=== PATIENT | female | born 1960 | race Caucasian/White ===

== ENCOUNTER → 2016-07-09 | Outpatient (CLI) | payer OTHER ==
[2013-11-23 14:22] VITALS: BP 113/65
[~2016-07-09] MED LIST: MULT-246 PO; SERT100T PO; ZOLP10TA PO
--- NOTE | 2016-07-09 14:36 | KCIC ---
PROCEDURE Lumbar spine MRI without contrast. HISTORY Lower back pain. Right lower extremity radiculopathy. TECHNIQUE Multiplanar and multi sequence magnetic resonance imaging of the lumbar spine was performed without contrast. COMPARISON None. FINDINGS There is minimal retrolisthesis of L2 on L3. There is slight straightening of lumbar lordosis. There is endplate remodeling with disc space narrowing and disc desiccation predominately at the lumbosacral junction. There are few endplate Schmorl's nodes. The conus terminates at L1-L2. There are few small vertebral body hemangiomas. At L1-L2, there is a minimal disc bulge and endplate remodeling. There is no stenosis. At L2-L3, there is a mild disc bulge and endplate remodeling. There may be superimposed shallow right extra foraminal to lateral disc protrusion. There is no stenosis. At L3-L4, there is no stenosis. At L4-L5, there is a disc bulge with right foraminal annular tear and endplate remodeling. There is mild facet arthropathy. There is no significant stenosis. At L5-S1, there is diffuse disc bulge and endplate osteophytosis. There is mild facet arthropathy. There is no significant stenosis. IMPRESSION 1. Multilevel degenerative change within the lumbar spine, described in detail above. 2. No acute finding. Electronically signed by: Mena Cottrell (Jul 09, 2016 14:34:34)
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
== END | disposition home or self-care (01) ==
LOC: KCIC MRI 12:45
DX: M25.561 Pain in right knee (principal); M54.5 Low back pain
CPT/HCPCS: 72148; 73721

== ENCOUNTER 2016-07-21 11:19 | Emergency (ER) | payer OTHER ==
[~2016-07-21] VITALS: Ht 152.4 cm; Wt 68.0 kg
[2016-07-21] MEDS ORDERED: MORPHINE SULFATE 4 MG/ML DISP.SYRIN. IV ONE (12:15)
[2016-07-21] MEDS ORDERED: ONDANSETRON PF 4 MG/2 ML VIAL. IV ONE (12:15)
[2016-07-21 12:27] LABS: CALCIUM 9.3 mg/dL (8.5-10.1); CREATININE 0.8 mg/dL (0.6-1.0); GFR 74.7; POTASSIUM 4.4 mmol/L (3.5-5.1)
[2016-07-21 12:29] LABS: BASO # 0.1 x10^3/uL (0.0-0.2); BASO % 1 % (0-3); EOS % 1 % (0-3); HEMATOCRIT 41.6 % (36.0-47.0); LYMPH # 1.3 x10^3/uL (1.0-4.8); LYMPH % 13 % (24-48); MEAN CORPUSCULAR HEMOGLOBIN 30 pg (25-35); MEAN CORPUSCULAR HGB CONC 34 g/dL (31-37); MEAN CORPUSCULAR VOLUME 90 fL (79-100); MONO % 3 % (0-9); NEUT % 83 % (31-73); PLATELET COUNT 179 x10^3/uL (140-400); RED BLOOD COUNT 4.63 x10^6/uL (3.50-5.40); RED CELL DISTRIBUTION WIDTH 12.8 % (11.5-14.5); WHITE BLOOD COUNT 9.9 x10^3/uL (4.0-11.0)
[2016-07-21 12:32] LABS: ALBUMIN 3.8 g/dL (3.4-5.0); TOTAL BILIRUBIN 0.3 mg/dL (0.2-1.0); TOTAL PROTEIN 7.6 g/dL (6.4-8.2)
[2016-07-21 12:35] LABS: BILIRUBIN,URINE NEGATIVE (NEG); GLUCOSE,URINE NEGATIVE (NEG); NITRITE,URINE NEGATIVE (NEG); PH,URINE 7.5; PROTEIN,URINE NEGATIVE (NEG-TRACE); UROBILINOGEN,URINE 0.2 mg/dL (0.2 mg/dL)
[2016-07-21 13:24] LABS: BACTERIA,URINE 0 /HPF (0-FEW); RBC,URINE 0 /HPF (0-2); SQUAMOUS EPITHELIAL CELL,UR OCC /LPF; WBC,URINE 0 /HPF (0-4)
[2016-07-21 14:00] VITALS: BP 119/78
[2016-07-21] MEDS ORDERED: OXYCODONE/APAP 5/325 TABLET. PO ONE (14:00)
[2016-07-21] MEDS ORDERED: OXYC-323 PO (14:03)
[2016-07-21] MEDS ORDERED: ONDA4TAB10 SL (14:03)
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
== END 2016-07-21 14:22 | disposition home or self-care (01) ==
LOC: ER 11:19
DX: R10.9 Unspecified abdominal pain (principal); G89.29 Other chronic pain; Z88.2 Allergy status to sulfonamides; Z88.5 Allergy status to narcotic agent; Z91.012 Allergy to eggs
CPT/HCPCS: 36415; 80053; 81001; 85027; 96374; 96375; 99284; J2270; J2405

== ENCOUNTER 2017-05-27 14:20 | Emergency (ER) | payer MEDICARE, OTHER ==
[2017-05-27] MEDS: ALBUTEROL SULFATE 2.5 MG/3 ML NEBU. NEB (15:14)
[2017-05-27 15:27] LABS: INFLUENZA A PATIENT POSITIVE (NEGATIVE); INFLUENZA B PATIENT NEGATIVE (NEGATIVE); OBC FLU VALID
== END 2017-05-27 15:17 | disposition home or self-care (01) ==
LOC: ER 14:20
DX: J09.X2 Influenza due to identified novel influenza A virus with other respiratory manifestations (principal); D86.9 Sarcoidosis, unspecified; F32.9 Major depressive disorder, single episode, unspecified; G89.29 Other chronic pain; Z88.2 Allergy status to sulfonamides; Z87.01 Personal history of pneumonia (recurrent); Z88.5 Allergy status to narcotic agent; Z91.012 Allergy to eggs
CPT/HCPCS: 71046; 87804; 87804-59; 94640; 99285-25; J7613

== ENCOUNTER 2017-06-02 10:56 | Emergency (ER) | payer MEDICARE ==
[2017-06-02] MEDS: IV NORMAL SALINE 1000ML BAG 1,000 ML IV ×2 (11:33)
[2017-06-02] MEDS: ONDANSETRON PF 4 MG/2 ML VIAL. IV ×2 (11:34)
[2017-06-02] MEDS: KETOROLAC 15 MG/ML VIAL. IV ×2 (11:35)
[2017-06-02 11:36] LABS: ANION GAP 4 (6-14); BLOOD UREA NITROGEN 10 mg/dL (7-20); BUN/CREATININE RATIO 11 (6-20); CALCIUM 9.2 mg/dL (8.5-10.1); CARBON DIOXIDE 30 mmol/L (21-32); CHLORIDE 101 mmol/L (98-107); CREATININE 0.9 mg/dL (0.6-1.0); GLUCOSE 104 mg/dL (70-99); POTASSIUM 3.5 mmol/L (3.5-5.1); SODIUM 135 mmol/L (136-145)
[2017-06-02] MEDS: ACETAMINOPHEN 325 MG TABLET. PO ×2 (11:36)
[2017-06-02 11:41] LABS: ALBUMIN 4.2 g/dL (3.4-5.0); ALBUMIN/GLOBULIN RATIO 1.1 (1.0-1.7); ALK PHOS 77 U/L (46-116); ALT (SGPT) 18 U/L (14-59); AST (SGOT) 20 U/L (15-37); TOTAL BILIRUBIN 0.4 mg/dL (0.2-1.0); TOTAL PROTEIN 8.2 g/dL (6.4-8.2)
== END 2017-06-02 14:12 | disposition home or self-care (01) ==
LOC: ER 10:56
DX: J11.1 Influenza due to unidentified influenza virus with other respiratory manifestations (principal); E86.0 Dehydration; G89.29 Other chronic pain; Z88.2 Allergy status to sulfonamides; Z88.5 Allergy status to narcotic agent; Z91.012 Allergy to eggs
CPT/HCPCS: 36415; 80053; 96361; 96374; 96375; 99284-25; J1885; J2405; J7030

== ENCOUNTER 2017-07-16 06:05 | Emergency (ER) | payer MEDICARE ==
[2017-07-16 06:56] LABS: ANION GAP 10 (6-14); BLOOD UREA NITROGEN 11 mg/dL (7-20); BUN/CREATININE RATIO 14 (6-20); CALCIUM 9.5 mg/dL (8.5-10.1); CARBON DIOXIDE 24 mmol/L (21-32); CHLORIDE 105 mmol/L (98-107); CREATININE 0.8 mg/dL (0.6-1.0); GFR 74.5; GLUCOSE 93 mg/dL (70-99); POTASSIUM 3.8 mmol/L (3.5-5.1); SODIUM 139 mmol/L (136-145)
[2017-07-16 07:03] LABS: ALBUMIN 3.7 g/dL (3.4-5.0); ALK PHOS 76 U/L (46-116); ALT (SGPT) 16 U/L (14-59); AST (SGOT) 15 U/L (15-37); TOTAL BILIRUBIN 0.2 mg/dL (0.2-1.0); TOTAL PROTEIN 7.3 g/dL (6.4-8.2)
[2017-07-16] MEDS: IV NORMAL SALINE 1000ML BAG 1,000 ML IV (07:06)
[2017-07-16 07:11] LABS: TROPONINI < 0.017 ng/mL (0.000-0.055)
[2017-07-16 07:16] LABS: ADD MAN DIFF? NO
[2017-07-16 07:21] LABS: BASO # 0.1 x10^3/uL (0.0-0.2); BASO % 1 % (0-3); EOS # 0.1 x10^3/uL (0.0-0.7); EOS % 2 % (0-3); HEMATOCRIT 35.7 % (36.0-47.0); HEMOGLOBIN 12.3 g/dL (12.0-15.5); LYMPH # 2.4 x10^3/uL (1.0-4.8); LYMPH % 39 % (24-48); MEAN CORPUSCULAR HEMOGLOBIN 32 pg (25-35); MEAN CORPUSCULAR HGB CONC 34 g/dL (31-37); MEAN CORPUSCULAR VOLUME 94 fL (79-100); MONO # 0.4 x10^3/uL (0.0-1.1); MONO % 7 % (0-9); NEUT # 3.1 x10^3uL (1.8-7.7); NEUT % 50 % (31-73); PLATELET COUNT 189 x10^3/uL (140-400); RED BLOOD COUNT 3.81 x10^6/uL (3.50-5.40); RED CELL DISTRIBUTION WIDTH 12.7 % (11.5-14.5); WHITE BLOOD COUNT 6.1 x10^3/uL (4.0-11.0)
[2017-07-16 07:28] LABS: NT-PRO BNP 140 pg/mL (0-124)
[2017-07-16 07:28] LABS: CKMB MASS 0.6 ng/mL (0.0-3.6); CREATINE KINASE 50 U/L (26-192)
== END 2017-07-16 08:58 | disposition home or self-care (01) ==
LOC: ER 06:05
DX: R06.02 Shortness of breath (principal); R07.89 Other chest pain; F32.9 Major depressive disorder, single episode, unspecified; D86.9 Sarcoidosis, unspecified; G89.29 Other chronic pain; Z88.2 Allergy status to sulfonamides; Z88.5 Allergy status to narcotic agent; Z91.012 Allergy to eggs
CPT/HCPCS: 36415; 71046; 80053; 82553; 83880; 84484; 85025; 93005; 96360; 99285-25; J7030

== ENCOUNTER → 2017-07-21 | Outpatient (CLI) | payer MEDICARE | END | disposition home or self-care (01) | LOC: KCIC CT 09:22 | DX: M47.892 Other spondylosis, cervical region (principal); R13.10 Dysphagia, unspecified; R05 Cough | CPT/HCPCS: 70490; 74220 ==

== ENCOUNTER → 2017-08-19 | Day surgery (SDC) | payer MEDICARE ==
[~2017-08-19] MED LIST changes: +LIDOCAINE 1% PF 2 ML VIAL. ID; +MIDAZOLAM HCL/PF 5 MG/5 ML VIAL.; +MORPHINE SULFATE 4 MG/ML DISP.SYRIN. IV; -MULT-246 PO; +ONDANSETRON PF 4 MG/2 ML VIAL. IV; +PROCHLORPERAZINE 10 MG/2 ML VIAL. IV; -SERT100T PO; -ZOLP10TA PO; +fentaNYL PF VIAL 100 MCG/2 ML VIAL; +fentaNYL PF VIAL 100 MCG/2 ML VIAL IV
[2017-08-19] MEDS: IV RINGERS,LACTATED 1000ML 1,000 ML IV (12:39)
[2017-08-19] MEDS: ALBUTEROL SULFATE 2.5 MG/3 ML NEBU. NEB (12:40)
[2017-08-19] MEDS: MIDAZOLAM HCL/PF 5 MG/5 ML VIAL. IV (12:52)
== END ==
LOC: SURG 11:41
DX: D86.9 Sarcoidosis, unspecified (principal); J34.3 Hypertrophy of nasal turbinates
CPT/HCPCS: 31622; 94640; G0500; J2250; J3010; J7613

== ENCOUNTER 2018-09-11 19:09 | Emergency (ER) | payer MEDICARE ==
[~2018-09-11] VITALS: Ht 152.4 cm; Wt 68.0 kg
[~2018-09-11 19:09] MED LIST changes: +ACET325T9 PO; +ALBU2.5V8 INH; +BENZ100C PO; +CLON0.5T11 PO; +IBUP-1007 PO; -LIDOCAINE 1% PF 2 ML VIAL. ID; -MIDAZOLAM HCL/PF 5 MG/5 ML VIAL.; -MORPHINE SULFATE 4 MG/ML DISP.SYRIN. IV; +MULT-246 PO; +ONDA4TAB10 SL; -ONDANSETRON PF 4 MG/2 ML VIAL. IV; +OSEL75CA PO; +OXYC1TAB15 PO; -PROCHLORPERAZINE 10 MG/2 ML VIAL. IV; +SERT100T PO; +ZOLP10TA PO; -fentaNYL PF VIAL 100 MCG/2 ML VIAL; -fentaNYL PF VIAL 100 MCG/2 ML VIAL IV
[2018-09-11] MEDS ORDERED: ONDANSETRON ODT 4 MG TAB.RAPDIS. PO ONE (19:45)
[2018-09-11] MEDS ORDERED: MORPHINE SULFATE 10 MG/ML VIAL. IM ONE (19:45)
[2018-09-11] MEDS ORDERED: methylPREDNISolone SOD SUCC PF 125 MG/2 ML VIAL. IM ONE (19:45)
[2018-09-11] MEDS ORDERED: HYDR-3164 PO (20:17)
[2018-09-11] MEDS ORDERED: ONDA4TAB12 PO (20:17)
--- NOTE | 2018-09-11 20:17 | PHYS DOC ---
Past Medical History Past Medical History: Cancer, Depression, Other Additional Past Medical Histor: breast cancer, lymphedema right arm,SARCOIDOSIS,CHRONIC PAIN Past Surgical History: , Tonsillectomy, Other Additional Past Surgical Histo: lumpectomy to right breast with right axillary lymph node resection Alcohol Use: Rarely Drug Use: None Adult General Chief Complaint Chief Complaint: BACK PAIN - NO INJURY HPI HPI Patient is a 58 year old female with history of anxiety, chronic mid and low back pain who presents to the ED today complaining of exacerbation of chronic back pain since this morning. Patient rates the pain at 9 out of 10. Describes the pain as sharp worse on movement. She states she went to see the PCP today and was given Toradol injection and Flexeril. She states none of it helped. She states she was having dinner with some friends, she states one of the friends was very loud, she states she could not take it anymore. She states her back got worse, she states she came to the ED to see if we can give her anything else for her pain. Patient denies any known injury. Denies any pain radiating to bilateral lower extremities. Denies any loss of bowel bladder function. Denies any numbness or tenderness to bilateral lower extremities. Denies any UTI symptoms. She states her current pain is consistent with her chronic back pain Review of Systems Review of Systems Constitutional: Denies fever or chills [] Eyes: Denies change in visual acuity, redness, or eye pain [] HENT: Denies nasal congestion or sore throat [] Respiratory: Denies cough or shortness of breath [] Cardiovascular: No additional information not addressed in HPI [] GI: Denies abdominal pain, nausea, vomiting, bloody stools or diarrhea [] : Denies dysuria or hematuria [] Musculoskeletal: Reports mid and low back pain Integument: Denies rash or skin lesions [] Neurologic: Denies headache, focal weakness or sensory changes [] All other systems were reviewed and found to be within normal limits, except as documented in this note. Current Medications Current Medications Current Medications Medications (Trade) Dose Ordered Sig/Cole Start Time Stop Time Status Last Admin Dose Admin Methylprednisolone Sodium Succinate (SOLU-Medrol 125MG VIAL) 125 mg 1X ONCE 09/11/18 19:45 09/11/18 19:48 DC 09/11/18 19:56 125 MG Morphine Sulfate (Morphine Sulfate) 5 mg 1X ONCE 09/11/18 19:45 09/11/18 19:48 DC 09/11/18 19:57 5 MG Ondansetron HCl (Zofran Odt) 4 mg 1X ONCE 09/11/18 19:45 09/11/18 19:48 DC 09/11/18 19:56 4 MG Allergies Allergies Allergies Coded Allergies Type Severity Reaction Last Updated Verified Sulfa (Sulfonamide Antibiotics) Allergy Intermediate "Makes me real sick" 08/19/17 Yes codeine Allergy Intermediate "Makes me real sick" 08/19/17 Yes egg Allergy Intermediate "Makes me real sick" 08/19/17 Yes Physical Exam Physical Exam Constitutional: Well developed, well nourished, no acute distress, non-toxic appearance. [] HENT: Normocephalic, atraumatic, bilateral external ears normal, oropharynx moist, no oral exudates, nose normal. [] Eyes: PERRLA, EOMI, conjunctiva normal, no discharge. [] Neck: Normal range of motion, no tenderness, supple, no stridor. [] Cardiovascular:Heart rate regular rhythm, no murmur [] Lungs & Thorax: Bilateral breath sounds clear to auscultation [] Abdomen: Bowel sounds normal, soft, no tenderness, no masses, no pulsatile masses. [] Skin: Warm, dry, no erythema, no rash. [] Back: [id number] pain patches noted on the mid back, diffuse paraspinal muscle tenderness to bilateral thoracic and lumbar spine worse on the right side, no midline thoracic and lumbar spine tenderness, no CVA tenderness. [] Extremities: No tenderness, no cyanosis, no clubbing, ROM intact, no edema. [] Neurologic: Alert and oriented X 3, normal motor function, normal sensory function, no focal deficits noted. [] Psychologic: Affect normal, judgement normal, mood normal. [] Current Patient Data Vital Signs Vital Signs Date Time Temp Pulse Resp B/P (MAP) Pulse Ox O2 Delivery O2 Flow Rate FiO2 09/11/18 19:10 98.2 89 16 131/68 (89) 97 Room Air 98.2 EKG EKG [] Radiology/Procedures Radiology/Procedures [] Course & Med Decision Making Course & Med Decision Making Pertinent Labs and Imaging studies reviewed. (See chart for details) This is a 58-year-old female patient presenting to the ED today with exacerbation of chronic low back pain as well as mid back pain. See history of present illness. Was given pain relief in the ED and discharged to home. Follow- up with her PCP next week. Rigobertoon Disclaimer Dragon Disclaimer This electronic medical record was generated, in whole or in part, using a voice recognition dictation system. Departure Departure Impression: Primary Impression: Chronic mid back pain Additional Impression: Chronic low back pain Disposition: HOME, SELF-CARE Condition: STABLE Referrals: ESTHER RAMIREZ MD (PCP) Follow-up next week Patient Instructions: Back Pain, Adult Additional Instructions: You were evaluated in the emergency room for chronic back pain. We put you on hydrocodone, take it as needed for pain. We also gave you Zofran, you can take it with a hydrocodone to prevent vomiting/nausea. Please follow-up with your doctor in the next 1-2 weeks. Come back to the ED at any point symptoms worsen. Scripts Ondansetron (ONDANSETRON ODT) 4 Mg Tab.rapdis 1 TAB PO PRN Q6-8HRS, #16 TAB Prov: CLARIBEL MERA APRN 09/11/18 Hydrocodone/Apap 5-325 (NORCO 5-325 TABLET) 1 Each Tablet 1-2 TAB PO Q6HRS, #10 TAB Prov: CLARIBEL MERA APRN 09/11/18 Problem Qualifiers Primary Impression: Chronic mid back pain Back pain laterality: right Qualified Codes: M54.6 - Pain in thoracic spine; G89.29 - Other chronic pain Additional Impression: Chronic low back pain Back pain laterality: right Sciatica presence: without sciatica Qualified Codes: M54.5 - Low back pain; G89.29 - Other chronic pain CLARIBEL MERA APRN September 11, 2018 20:17
[2018-09-11 20:23] VITALS: BP 133/78
== END 2018-09-11 20:23 | disposition home or self-care (01) ==
LOC: ER 19:09
DX: G89.29 Other chronic pain (principal); M54.5 Low back pain; M54.6 Pain in thoracic spine; Z88.2 Allergy status to sulfonamides; Z88.5 Allergy status to narcotic agent; Z91.012 Allergy to eggs
CPT/HCPCS: 96372; 99284; J2270; J2930; Q0162

== ENCOUNTER → 2021-03-13 | Outpatient (CLI) | payer MEDICARE ==
[~2021-03-13] MED LIST changes: +CAPS1ADH8 TP; +CELE100C PO; +CLON-77 PO; -CLON0.5T11 PO; +CLONAZEPAM1 MG PO; +FLUO20CA16 PO; +HYDR-3164 PO; +OMEP40CA7 PO; +ONDA4TAB12 PO; +SUMA100T4 PO; +TYLENOL; +ZOLP5TAB PO
--- NOTE | 2021-03-13 15:40 | KCIC ---
EXAMINATION: Magnetic resonance imaging (MRI) of the cervical spine without contrast 03/13/2021 12:40 PM HISTORY: Cervical radiculopathy TECHNIQUE: Multiplanar multi-weighted MRI of the cervical spine was performed without intravenous con trast using the standard cervical spine protocol. Contrast information: None administered COMPARISON: None available. FINDINGS: There is 2 mm anterolisthesis of C7 on T1. Vertebral bodies demonstrate normal signal intensity on al l sequences. No acute fracture is identified; however, if trauma is suspected, a CT scan would be a more sensitive examination for fractures. The craniocervical junction is normal. The visualized por tions of the skull base and the posterior fossa are normal. The spinal cord demonstrates normal sign al intensity on all sequences. Disc desiccation is identified at all levels of the cervical spine is mild disc height loss at C5-C6. No soft tissue abnormality is identified. Normal signal voids are p resent in the vertebral arteries. C2-C3: The disk is normal in configuration. There is no facet arthropathy. There is no uncovertebral joint disease. There is no neuroforaminal stenosis. There is no spinal canal stenosis. C3-C4: There is a posterior disc osteophyte complex with left foraminal disc extrusion. Mild facet ar thropathy. Severe left neuroforaminal stenosis. Mild spinal canal stenosis without deformity of the c ord or cord signal alteration. C4-C5: There is a posterior disc osteophyte complex asymmetric to the left. Mild facet arthropathy. M oderate left and moderate uncovertebral joint disease. Severe left and moderate right neural foramina l stenosis. Mild spinal canal stenosis. C5-C6: There is a posterior disc osteophyte complex. Mild facet arthropathy. There is a right foramin al disc extrusion. Severe right neuroforaminal stenosis. Mild spinal canal stenosis without deformity or cord or cord signal alteration. C6-C7: There is a disc bulge asymmetric to the left with left foraminal disc protrusion. Mild facet a rthropathy. Moderate uncovertebral joint disease. Moderate bilateral neural foraminal stenosis. Mild spinal canal stenosis. C7-T1: Disc is normal in configuration. No neuroforaminal or spinal canal stenosis. IMPRESSION: Mild degenerative changes of the cervical spine as described in detail above. Electronically signed by: Pham Oakes MD (03/13/2021 3:38 PM) [facility]
== END ==
LOC: KCIC MRI 12:26
PROVIDERS: ATTEND Neurological Surgery
DX: M47.22 Other spondylosis with radiculopathy, cervical region (principal); M48.02 Spinal stenosis, cervical region; M43.13 Spondylolisthesis, cervicothoracic region; M50.123 Cervical disc disorder at C6-C7 level with radiculopathy; M48.8X2 Other specified spondylopathies, cervical region; M51.34 Other intervertebral disc degeneration, thoracic region; M25.78 Osteophyte, vertebrae
CPT/HCPCS: 72141

== ENCOUNTER → 2021-03-23 | Outpatient (CLI) | payer MEDICARE ==
[~2021-03-23] MED LIST changes: +IOHEXOL 180 MG/ML 10 ML VIAL. ONE; +methylPREDNISolone ACETATE 40 MG/ML VIAL. ONE; +methylPREDNISolone ACETATE 80 MG/ML VIAL. ONE
--- NOTE | 2021-03-23 09:48 | PDOC1 ---
INITIAL PAIN CONSULT DATE OF SERVICE: DOS: DATE: 03/23/21 TIME: 09:42 CHIEF COMPLAINT: Chief Complaint: Neck and right upper extremity pain HISTORY OF PRESENT ILLNESS: 60-year-old female presents with history of pain base of neck right upper extremity and shoulder blade for about 4 months not resolve any specific injury or accident that she is aware of is had several falls over the past few months for various reasons has had significant pain base the neck and right upper extremity radiating to the arm and hand patient reports it is constant sharp stabbing throbbing shooting tingling with numbness in the right hand and arm aching in the neck worse with activity standing walking repetitive motions reaching driving any weightbearing with forward reaching especially difficult sleeping patient reports wait several weeks once an hour from sleep side effect her ability to walk but does affect her ability to repetitive motions with the right arm patient reports has had physical therapy also counseling also chiropractic treatment all of which were helpful but only very temporarily patient is taking Tylenol and taking salon pause patches and arthritis creams which help but only temporarily patient rates her disability rating 0-10 10 being worst is a 10 in all categories family was mostly 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 Patient have an MRI scan of the cervical spine showing at C3-4 C4-5 and C5-6 and C6-7 asymmetric disc bulge with osteophyte complexes at C4-5 moderate left and moderate uncovertebral joint disease severe left and moderate right neuroforaminal stenosis C4-5 with mild spinal canal stenosis at C5-6 and C6-7 showing mild bilateral neuroforaminal stenosis as well. Patient reports no loss of motor function with significant fatigability right upper extremity compared to the left. PAST MEDICAL HISTORY: PMH: Arthritis, shortness of breath, chemotherapy status post radiation and chemotherapy treatment, lymphedema right arm PREVIOUS SURGERIES: Past Surgical Hx: Right breast lumpectomy, right lung wedge resection, , tonsillectomy, breast reduction CURRENT MEDICATIONS: Current Meds: Active Scripts Medications Dose Route/Sig Max Daily Dose Days Date Category Clonazepam 1 Mg Tablet 1 Mg PO BID 03/23/21 Reported Salonpas Gel-Patch Hot (Capsaicin/Menthol) 1 Each Adh..patch 1 Patch TP DAILY 30 03/23/21 Reported [tylenol 8 hour ] 650 Mg BID 03/23/21 Reported Sumatriptan Succinate 100 Mg Tablet 1 Tab PO UD 03/23/21 Reported Omeprazole 40 Mg Capsule. 1 Cap PO DAILY 03/23/21 Reported Celebrex (Celecoxib) 100 Mg Capsule 1 Cap PO BID 03/23/21 Reported Ambien (Zolpidem Tartrate) 5 Mg Tablet 5 Mg PO PRN QHS PRN 03/23/21 Reported Prozac (Fluoxetine Hcl) 20 Mg Capsule 1 Cap PO DAILYWBKFT 03/23/21 Reported Tylenol (Acetaminophen) 325 Mg Tablet 1 Tab PO PRN Q4HRS 08/19/17 Reported ALLERGIES; Allergies: Coded Allergies: Sulfa (Sulfonamide Antibiotics) (Verified Allergy, Intermediate, "Makes me real sick", 08/19/17) codeine (Verified Allergy, Intermediate, "Makes me real sick", 08/19/17) egg (Verified Allergy, Intermediate, "Makes me real sick", 08/19/17) prednisone (Verified Adverse Reaction, Intermediate, 03/23/21) FAMILY HISTORY: Family Hx: Heart disease, lung cancer, dementia, prostate cancer, macular degeneration, strokes, sarcoidosis SOCIAL HISTORY: Social Hx: Patient is nondrug alcohol does not smoke says any illegal illicit or recreational drugs single lives in [facility] REVIEW OF SYSTEMS: ROS: Positive for those items mentioned in history of present illness, all systems are reviewed, otherwise negative ,and are complete full and well-documented on patient's chart. PHYSICAL EXAM: VS: Blood pressure is 123/79 pulse 90 respirations 16 temperature 98.2 F height is 5 foot weight is 158 pounds PE: PHYSICAL EXAMINATION: GENERAL: The patient is awake, alert, oriented, appropriate, very pleasant in demeanor HEENT: Shows normocephalic, atraumatic. Extraocular movements are intact and symmetrical. Oral cavity: Mucous membranes moist and pink. Dentition is intact. NECK: Shows anterior throat supple without palpable lymphadenopathy noted. Swallow reflex symmetrical. CHEST: Shows normal on inspection. Breath sounds are clear bilaterally, distant no rales or rhonchi. HEART: Shows S1, S2 clear. No murmurs auscultated. ABDOMEN: Soft, nontender, nondistended, obese. No palpable organomegaly is noted. No rebound or guarding demonstrated. BACK: Shows spine grossly in the midline. Normal-appearing cervical lordotic curvature. Cervical paraspinous muscles show symmetrical inspection, palpation some moderate tenderness diffusely throughout the upper middle lower decrease the paraspinous muscles bilaterally somewhat more on the right than the left but present bilateral without trigger points without radiation. Patient shows good rotation of motion cervical spine both laterally as well as full extension full forward flexion without significant difficulty. There is slightly increased thoracic kyphosis, some minor flattening of the lumbar lordotic curvature. EXTREMITIES: Upper extremities show deep tendon reflexes 2+ in the biceps and tricep tendons. 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 Peripheral pulses are 2+ radial. No peripheral edema is noted bilaterally. Upper extremities are warm and dry to touch, equal in color and appearance. SKIN: Shows warm and dry, good turgor. No edema. No sores, rashes or bruising throughout. IMPRESSION: Impression: 60-year-old female with proximate 4-month history increasing pain base of neck right upper extremity in a radicular fashion. MRI scan cervical spine as noted Arthritis Shortness of breath Status post breast cancer Plan: Options discussed with patient occluding cancer medical managements phys ical therapies interventional techniques. Patient elects interventional techniques. We discussed the cervical epidural steroid injections description as well as anatomical models described procedure. Risks were discussed including but not limited to: Bleeding, infection, possibility of epidural hematoma and subsequent neurological compromise, dural puncture, headaches, spinal cord and/or nerve damage, side effects of steroid medication, and poor results regarding pain control. Patient understands and wished to proceed. Patient return to the clinic in approximate 2 weeks for follow-up, was counseled as return appointment, activity level, and side effect to be aware of. Procedure cervical epidural steroid injection at the C6-7 level, using local anesthetic under sterile prep and drape using C-arm fluoroscopic guidance under local anesthesia medications injected ;120 mg Depo-Medrol +5 mL normal saline and 2 mL contrast; condition at discharge is stable patient tolerated procedure well. and had no complications MATT PORTER MD Mar 23, 2021 09:48
--- NOTE | 2021-03-23 09:49 | PDOC4 ---
Procedure Note: ICD 10 Code: ICD 10 Code: M54.12 M50.36 M4 8.02 Procedure Note: Patient was consented for cervical epidural steroid injection with fluoroscopic guidance. Risks were discussed including but not limited to: Bleeding, infection, possibility of epidural hematoma and subsequent neurological compromise, dural puncture, headaches, spinal cord and/or nerve damage, side effects of steroid medication, and poor results regarding pain control. Patient understands and wished to proceed. Procedure cervical epidural steroid injection at the C6-7 level, using local anesthetic under sterile prep and drape using C-arm fluoroscopic guidance under local anesthesia medications injected ;120 mg Depo-Medrol +5 mL normal saline and 2 mL contrast; condition at discharge is stable patient tolerated procedure well. and had no complications MATT PORTER MD Mar 23, 2021 09:49
== END | disposition home or self-care (01) ==
LOC: PNCL 07:39
PROVIDERS: ATTEND Anesthesiology
DX: M54.12 Radiculopathy, cervical region (principal); G89.29 Other chronic pain; M19.90 Unspecified osteoarthritis, unspecified site; Z98.890 Other specified postprocedural states; Z79.899 Other long term (current) drug therapy; Z85.3 Personal history of malignant neoplasm of breast; Z88.8 Allergy status to other drugs, medicaments and biological substances; Z88.2 Allergy status to sulfonamides
CPT/HCPCS: 62321; J1030; J1040; Q9965

== ENCOUNTER → 2021-04-06 | Outpatient (CLI) | payer MEDICARE ==
--- NOTE | 2021-04-06 08:42 | PDOC ---
Progress Note - Pain Clinic Date of Service: DOS: DATE: 04/06/21 TIME: 08:39 Diagnosis: Dx: Cervical radiculopathy with cervical degenerative disease and cervical spinal stenosis History or Present Illness: HPI: 60-year-old female returns for follow-up status post cervical epidural steroid action x1. Patient reports 25% percent improvement in the pain in the base the neck and right upper extremity patient reports still significant however in the scapular region as well rated as a 10 on scale 10 is worst average and least is a 10 today patient scribes as aching sharp shooting in the right arm and upper extremity as well as the right scapula stabbing radiating can be constant severe with repetitive motions reaching overhead with the right hand and weightbearing with lifting and reaching forward patient reports it wakes her from sleep about every 3-4 hours patient reports no motor deficits but significant fatigability of the right upper extremity. Physical Exam: VS: Blood pressure is one 2/88 pulse 94 respirations 16 temperature is 98.4 F height 5 foot weight is 161 pounds PE: PHYSICAL EXAMINATION: GENERAL: The patient is awake, alert, oriented, appropriate, very pleasant in demeanor HEENT: Shows normocephalic, atraumatic. Extraocular movements are intact and symmetrical. Oral cavity: Mucous membranes moist and pink. Dentition is intact. NECK: Shows anterior throat supple without palpable lymphadenopathy noted. Swallow reflex symmetrical. CHEST: Shows normal on inspection. Breath sounds are clear bilaterally. HEART: Shows S1, S2 clear. No murmurs auscultated. ABDOMEN: Soft, nontender, nondistended. No palpable organomegaly is noted. BACK: Shows spine grossly in the midline. Normal-appearing cervical lordotic curvature. Cervical paraspinous muscles show symmetrical inspection, palpation some moderate tenderness diffusely bilaterally only diffusely without significant radiation patient shows full rotation motion cervical spine both laterally as well as full extension full forward flexion without significant difficulty. There is slightly increased thoracic kyphosis, some minor flattening of the lumbar lordotic curvature. EXTREMITIES: Upper extremities show deep tendon reflexes 2+ in the biceps and triceps tendons. 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 Peripheral pulses are 2+ radial. No peripheral edema is noted bilaterally. Upper extremities are warm and dry to touch, equal in color and appearance. SKIN: Shows warm and dry, good turgor. No edema. No sores, rashes or bruising throughout. Procedure: Procedure: Options were discussed with the patient. Patient's old chart was reviewed as her current medication regimen updated current review of systems updated today as well. We'll proceed with a cervical epidural steroid injection today with fluoroscopic guidance. Risks were discussed including but not limited to: Bleeding, infection, possibility of epidural hematoma and subsequent neurological compromise, dural puncture, headaches, spinal cord and/or nerve damage, side effects of steroid medication, and poor results regarding pain control. Patient understands and wished to proceed. Patient will return to the clinic in approximate 2 weeks for follow-up, was counseled as return appointment, activity level, and side effect to be aware of. Medication Injected: Med Injected: Procedure cervical epidural steroid injection at the C6-7 level, using local a nesthetic under sterile prep and drape using C-arm fluoroscopic guidance under local anesthesia medications injected ;120 mg Depo-Medrol +5 mL normal saline and 2 mL contrast; condition at discharge is stable patient tolerated procedure well. and had no complications Condition at Discharge: Condition at Discharge: Condition at discharge stable, patient tolerated procedure well and had no complications. MATT PORTER MD Apr 06, 2021 08:42
--- NOTE | 2021-04-06 08:42 | PDOC4 ---
Procedure Note: ICD 10 Code: ICD 10 Code: M54.12 M50.30 M4 8.02 Procedure Note: Patient was consented for cervical epidural steroid injection with fluoroscopic guidance. Risks were discussed including but not limited to: Bleeding, infection, possibility of epidural hematoma and subsequent neurological compromise, dural puncture, headaches, spinal cord and/or nerve damage, side effects of steroid medication, and poor results regarding pain control. Patient understands and wished to proceed. Procedure cervical epidural steroid injection at the C6-7 level, using local a nesthetic under sterile prep and drape using C-arm fluoroscopic guidance under local anesthesia medications injected ;120 mg Depo-Medrol +5 mL normal saline and 2 mL contrast; condition at discharge is stable patient tolerated procedure well. and had no complications MATT PORTER MD Apr 06, 2021 08:42
== END | disposition home or self-care (01) ==
LOC: PNCL 07:57
PROVIDERS: ATTEND Anesthesiology
DX: M50.10 Cervical disc disorder with radiculopathy, unspecified cervical region (principal); M48.02 Spinal stenosis, cervical region; F41.9 Anxiety disorder, unspecified; F32.9 Major depressive disorder, single episode, unspecified; Z85.3 Personal history of malignant neoplasm of breast; Z79.899 Other long term (current) drug therapy; Z98.890 Other specified postprocedural states; Z72.89 Other problems related to lifestyle; Z88.2 Allergy status to sulfonamides; Z88.5 Allergy status to narcotic agent; Z88.8 Allergy status to other drugs, medicaments and biological substances
CPT/HCPCS: 62321; J1030; J1040; Q9965

== ENCOUNTER → 2021-05-08 | Outpatient (CLI) | payer MEDICARE ==
--- NOTE | 2021-05-08 11:19 | PDOC ---
Progress Note - Pain Clinic Date of Service: DOS: DATE: 05/08/21 TIME: 11:14 Diagnosis: Dx: Cervical radiculopathy with cervical degenerative disease and cervical spinal stenosis Lumbar radiculopathy with lumbar degenerative disc disease Hypertension History or Present Illness: HPI: 60-year-old female returns for follow-up status post cervical epidural steroid injection last seen April 06, 2021 patient did very well after injection about 30% improvement in the neck and right upper extremity pain patient reports is doing better but still have significant pain in the right shoulder and upper extremity rated 8 on scale 10 is worst 6 on average 6 at its least and is a 6 today patient ports aching sharp shooting stabbing can be radiating constant also has new pain complaint of low back pain and "sciatic" pain in the lower extremities bilaterally. Patient reports is more on the right than the left and present into the posterior gluteus and thigh and lateral thigh as well patient reports is worse with walking and standing changing positions. Patient reports headaches which have been significant after the last injection they were quite a bit improved but then patient was hospitalized after her second injection for several days to control the migraines. We discussed patient's blood pressure today with a diastolic checked twice over 100, and discussed how pain can cause increased blood pressure, and patient to follow-up with her primary care physician regarding the hypertension as she is not currently taking any antihypertensives. Physical Exam: VS: Blood pressure is 135/102 pulse 88 respirations 18 temperature 97.7 F height is 5 foot weight is 161 pounds. PE: PHYSICAL EXAMINATION: GENERAL: The patient is awake, alert, oriented, appropriate, very pleasant demeanor HEENT: Shows normocephalic, atraumatic. Extraocular movements are intact and symmetrical. Oral cavity: Mucous membranes moist and pink. Dentition is intact. NECK: Shows anterior throat supple without palpable lymphadenopathy noted. Swallow reflex symmetrical. CHEST: Shows normal on inspection. Breath sounds are clear bilaterally, no rales or rhonchi. HEART: Shows S1, S2 clear. No murmurs auscultated. ABDOMEN: Soft, nontender, nondistended. No palpable organomegaly is noted. BACK: Shows spine grossly in the midline. Normal-appearing cervical lordotic curvature. Cervical paraspinous muscles show symmetrical inspection, palpation shows moderate tenderness diffusely, in the middle and lower distribution the paraspinous musculature, no radiation no atrophy or hypertrophy no trigger points identified. Patient does show good rotation motion cervical spine both laterally as well as full extension full forward flexion without significant difficulty or pain reported. There is increased thoracic kyphosis, some mild flattening of the lumbar lordotic curvature. Lumbar paraspinous muscles show symmetrical on inspection, on palpation shows some moderate tenderness diffusely throughout the upper, middle and lower distribution of the paraspinous muscles, but without specific trigger points, without radiation of pain. The patient has good rotational motion of the lumbar spine, both laterally as well as extension and flexion without significant difficulty. No tenderness over the spinous processes, sacrum or sacroiliac regions. 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 Lower extremities show deep tendon reflexes 2+ in the patellar and tendo calcaneus tendons. Motor exam is 5 on a scale of 5 with right dorsiflexion, extension, quadriceps and hamstring flexion and 5/5 on the left. Lower extremities are warm and dry to touch, equal in color and appearance. SKIN: Shows warm and dry, good turgor. No edema. No sores, rashes or bruising throughout. Procedure: Procedure: Options discussed with the patient. Patient chart was reviewed as her current medication regimen updated current review of systems updated today as well. We will proceed with a cervical epidural steroid injection today with fluoroscopic guidance. Risks were discussed including but not limited to: Bleeding, infection, possibility of epidural hematoma and subsequent neurological compromise, dural puncture, headaches, spinal cord and/or nerve damage, side effects of steroid medication, and poor results regarding pain control. Patient understands and wished to proceed. Patient will return to clinic in approximate 2 weeks for follow-up, was counseled as to return appointment, activity level, and side effect to be aware of. Medication Injected: Med Injected: Procedure cervical epidural steroid injection at the C6-7 level, using local anesthetic under sterile prep and drape using C-arm fluoroscopic guidance under local anesthesia medications injected ;120 mg Depo-Medrol +5 mL normal saline and 2 mL contrast; condition at discharge is stable patient tolerated procedure well. and had no complications Condition at Discharge: Condition at Discharge: Condition at discharge stable, patient Ross the procedure well and had no complications. MATT PORTER MD May 08, 2021 11:19
--- NOTE | 2021-05-08 11:20 | PDOC4 ---
Procedure Note: ICD 10 Code: ICD 10 Code: M54.12 M50.30 M4 8.02 Procedure Note: Patient was consented for cervical epidural steroid injection with fluoroscopic guidance. Risks were discussed including but not limited to: Bleeding, infection, possibility of epidural hematoma and subsequent neurological compromise, dural puncture, headaches, spinal cord and/or nerve damage, side effects of steroid medication, and poor results regarding pain control. Patient understands and wished to proceed. Procedure cervical epidural steroid injection at the C6-7 level, using local anesthetic under sterile prep and drape using C-arm fluoroscopic guidance under local anesthesia medications injected ;120 mg Depo-Medrol +5 mL normal saline and 2 mL contrast; condition at discharge is stable patient tolerated procedure well. and had no complications MATT PORTER MD May 08, 2021 11:20
== END | disposition home or self-care (01) ==
LOC: PNCL 10:30
PROVIDERS: ATTEND Anesthesiology
DX: M50.10 Cervical disc disorder with radiculopathy, unspecified cervical region (principal); M48.02 Spinal stenosis, cervical region; M51.16 Intervertebral disc disorders with radiculopathy, lumbar region; I10 Essential (primary) hypertension; F41.9 Anxiety disorder, unspecified; F32.9 Major depressive disorder, single episode, unspecified; Z85.3 Personal history of malignant neoplasm of breast; Z72.89 Other problems related to lifestyle; Z79.899 Other long term (current) drug therapy; Z98.890 Other specified postprocedural states; Z88.2 Allergy status to sulfonamides; Z88.5 Allergy status to narcotic agent; Z88.8 Allergy status to other drugs, medicaments and biological substances
CPT/HCPCS: 62321; J1030; J1040; Q9965

== ENCOUNTER 2021-09-12 13:12 | Emergency (ER) | payer MEDICARE ==
[~2021-09-12] VITALS: Ht 152.4 cm; Wt 72.8 kg
[~2021-09-12 13:12] MED LIST changes: -IOHEXOL 180 MG/ML 10 ML VIAL. ONE; -methylPREDNISolone ACETATE 40 MG/ML VIAL. ONE; -methylPREDNISolone ACETATE 80 MG/ML VIAL. ONE
[2021-09-12 13:39] LABS: BASO # 0.1 x10^3/uL (0.0-0.2); BASO % 1 % (0-3); EOS # 0.2 x10^3/uL (0.0-0.7); EOS % 2 % (0-3); HEMATOCRIT 40.7 % (36.0-47.0); HEMOGLOBIN 13.9 g/dL (12.0-15.5); LYMPH # 2.4 x10^3/uL (1.0-4.8); LYMPH % 26 % (24-48); MEAN CORPUSCULAR HEMOGLOBIN 31 pg (25-35); MEAN CORPUSCULAR HGB CONC 34 g/dL (31-37); MEAN CORPUSCULAR VOLUME 92 fL (79-100); MONO # 0.5 x10^3/uL (0.0-1.1); MONO % 5 % (0-9); NEUT % 66 % (31-73); PLATELET COUNT 240 x10^3/uL (140-400); RED BLOOD COUNT 4.43 x10^6/uL (3.50-5.40); RED CELL DISTRIBUTION WIDTH 12.1 % (11.5-14.5)
[2021-09-12] MEDS ORDERED: ASPIRIN 325 MG TABLET PO ONE (13:45)
[2021-09-12 13:49] LABS: CALCIUM 9.2 mg/dL (8.5-10.1); CREATININE 0.8 mg/dL (0.6-1.0); GFR 73.4; POTASSIUM 4.4 mmol/L (3.5-5.1)
[2021-09-12 13:53] LABS: ALBUMIN 3.8 g/dL (3.4-5.0); MAGNESIUM 2.3 mg/dL (1.8-2.4); TOTAL BILIRUBIN 0.4 mg/dL (0.2-1.0); TOTAL PROTEIN 7.7 g/dL (6.4-8.2)
[2021-09-12] MEDS ORDERED: ASPIRIN CHEWABLE 81 MG TABLET. PO ONE (14:00)
[2021-09-12 14:46] LABS: BACTERIA,URINE 0 /HPF (0-FEW); RBC,URINE 0 /HPF (0-2); WBC,URINE OCC /HPF (0-4)
--- NOTE | 2021-09-12 14:47 | RAD ---
EXAM: Chest, single view. HISTORY: Chest pain. COMPARISON: 07/16/2017. FINDINGS: A frontal view of the chest obtained. There is a small opacity along the right lateral mid thorax due to infiltrate, scarring or a pulmonary nodule. There are surgical anastomoses overlying th e right lung. There is no pleural effusion or pneumothorax. The heart is normal in size. IMPRESSION: 1. Small focal opacity overlying the right lateral mid thorax, possibly due to infiltrate, scarring o r a nodule. Short-term radiographic or CT follow-up is recommended. 2. Surgical anastomoses involving the right lung. Electronically signed by: Mena Cottrell MD (09/12/2021 2:45 PM) [id number]
[2021-09-12 16:50] VITALS: BP 140/93
--- NOTE | 2021-09-12 17:27 | PHYS DOC ---
Past Medical History Past Medical History: Cancer, Depression, Other Additional Past Medical Histor: breast cancer, lymphedema right arm,SARCOID OSIS,CHRONIC PAIN Past Surgical History: , Tonsillectomy, Other Additional Past Surgical Histo: lumpectomy to right breast with right axillary lymph node resection Smoking Status: Never Smoker Alcohol Use: Rarely Drug Use: None General Adult EDM: Chief Complaint: CHEST PAIN HPI: HPI: Patient is a 61 year old female who presents with 5-week history of shortness of breath. Patient states that this has been ongoing for 5 weeks now, she has seen a physician previously for this who gave her an inhaler. She states that it was a slow onset. Patient states that she has experienced the symptoms as v bigg mild. She presents now because it has been ongoing for 5 weeks and she would like to be evaluated. Concurrent symptoms include nasal congestion, runny nose, body aches that were present several weeks ago. She has no other symptoms. Review of Systems: Review of Systems: Constitutional: Denies fever or chills. [] Eyes: Denies change in visual acuity. [] HENT: Positive nasal congestion no sore throat. [] Respiratory: Positive shortness of breath, no cough. [] Cardiovascular: Denies chest pain or edema. [] GI: Denies abdominal pain, nausea, vomiting, bloody stools or diarrhea. [] : Denies dysuria. [] Musculoskeletal: Denies back pain or joint pain. [] Integument: Denies rash. [] Neurologic: Denies headache, focal weakness or sensory changes. [] Endocrine: Denies polyuria or polydipsia. [] Lymphatic: Denies swollen glands. [] Psychiatric: Denies depression or anxiety. [] Heart Score: C/O Chest Pain: No Risk Factors: Risk Factors: DM, Current or recent (<one month) smoker, HTN, HLP, family histo ry of CAD, obesity. Risk Scores: Score 0 - 3: 2.5% MACE over next 6 weeks - Discharge Home Score 4 - 6: 20.3% MACE over next 6 weeks - Admit for Clinical Observation Score 7 - 10: 72.7% MACE over next 6 weeks - Early Invasive Strategies Current Medications: Current Medications Medications (Trade) Dose Ordered Sig/Cole Start Time Stop Time Status Last Admin Dose Admin Aspirin (Aspirin Chewable) 243 mg 1X ONCE 09/12/21 14:00 09/12/21 14:01 DC 09/12/21 14:16 243 MG Aspirin (Eva Aspirin) 325 mg 1X ONCE 09/12/21 13:45 09/12/21 13:45 DC Allergies: Allergies: Allergies Coded Allergies Type Severity Reaction Last Updated Verified Sulfa (Sulfonamide Antibiotics) Allergy Intermediate "Makes me real sick" 08/19/17 Yes codeine Allergy Intermediate "Makes me real sick" 08/19/17 Yes egg Allergy Intermediate "Makes me real sick" 08/19/17 Yes prednisone Adverse Reaction Intermediate 03/23/21 Yes Physical Exam: PE: Constitutional: Well developed, well nourished, no acute distress, non-toxic appearance. [] HENT: Normocephalic, atraumatic, bilateral external ears normal, oropharynx moist, no oral exudates, nose normal. [] Eyes: PERRLA, EOMI, conjunctiva normal, no discharge. [] Neck: Normal range of motion, no tenderness, supple, no stridor. [] Cardiovascular:Heart rate regular rhythm, no murmur [] Lungs & Thorax: Bilateral breath sounds clear to auscultation [] Abdomen: Bowel sounds normal, soft, no tenderness, no masses, no pulsatile masses. [] Skin: Warm, dry, no erythema, no rash. [] Back: No tenderness, no CVA tenderness. [] Extremities: No tenderness, no cyanosis, no clubbing, ROM intact, no edema. [] Neurologic: Alert and oriented X 3, normal motor function, normal sensory function, no focal deficits noted. [] Psychologic: Affect normal, judgement normal, mood normal. [] Current Patient Data: Labs: Laboratory Tests Test 09/12/21 13:25 09/12/21 14:13 09/12/21 15:23 09/12/21 16:39 White Blood Count 9.0 x10^3/uL (4.0-11.0) Red Blood Count 4.43 x10^6/uL (3.50-5.40) Hemoglobin 13.9 g/dL (12.0-15.5) Hematocrit 40.7 % (36.0-47.0) Mean Corpuscular Volume 92 fL (79-100) Mean Corpuscular Hemoglobin 31 pg (25-35) Mean Corpuscular Hemoglobin Concent 34 g/dL (31-37) Red Cell Distribution Width 12.1 % (11.5-14.5) Platelet Count 240 x10^3/uL (140-400) Neutrophils (%) (Auto) 66 % (31-73) Lymphocytes (%) (Auto) 26 % (24-48) Monocytes (%) (Auto) 5 % (0-9) Eosinophils (%) (Auto) 2 % (0-3) Basophils (%) (Auto) 1 % (0-3) Neutrophils # (Auto) 6.0 x10^3/uL (1.8-7.7) Lymphocytes # (Auto) 2.4 x10^3/uL (1.0-4.8) Monocytes # (Auto) 0.5 x10^3/uL (0.0-1.1) Eosinophils # (Auto) 0.2 x10^3/uL (0.0-0.7) Basophils # (Auto) 0.1 x10^3/uL (0.0-0.2) Sodium Level 141 mmol/L (136-145) Potassium Level 4.4 mmol/L (3.5-5.1) Chloride Level 103 mmol/L (98-107) Carbon Dioxide Level 24 mmol/L (21-32) Anion Gap 14 (6-14) Blood Urea Nitrogen 11 mg/dL (7-20) Creatinine 0.8 mg/dL (0.6-1.0) Estimated GFR (Cockcroft-Gault) 73.4 BUN/Creatinine Ratio 14 (6-20) Glucose Level 97 mg/dL (70-99) Calcium Level 9.2 mg/dL (8.5-10.1) Magnesium Level 2.3 mg/dL (1.8-2.4) Total Bilirubin 0.4 mg/dL (0.2-1.0) Aspartate Amino Transferase (AST) 30 U/L (15-37) Alanine Aminotransferase (ALT) 26 U/L (14-59) Alkaline Phosphatase 89 U/L (46-116) Troponin I High Sensitivity 5 ng/L (4-50) 6 ng/L (4-50) SV-Vfb-[id number]-Type Natriuretic Peptide 67 pg/mL (0-124) Total Protein 7.7 g/dL (6.4-8.2) Albumin 3.8 g/dL (3.4-5.0) Albumin/Globulin Ratio 1.0 (1.0-1.7) Lipase 236 U/L (73-393) Urine Collection Type Unknown Urine Color (Auto) Colorless Urine Turbidity Clear Urine pH (Auto) 6.0 (<5.0-8.0) Urine Specific [place] 1.006 (1.000-1.030) Urine Protein (Auto) Negative mg/dL (Negative) Urine Glucose (Auto)(UA) Negative mg/dL (Negative) Urine Ketones (Auto) Negative mg/dL (Negative) Urine Blood (Auto) Negative (Negative) Urine Nitrite (Auto) Negative (Negative) Urine Bilirubin (Auto) Negative (Negative) Urine Urobilinogen (Auto) Normal mg/dL (Normal) Urine Leukocyte Esterase (Auto) Negative (Negative) Urine RBC 0 /HPF (0-2) Urine WBC Occ /HPF (0-4) Urine Squamous Epithelial Cells Few /LPF Urine Bacteria 0 /HPF (0-FEW) SARS-CoV-2 Antigen (Rapid) Negative (NEGATIVE) Laboratory Tests 09/12/21 13:25 Laboratory Tests 09/12/21 13:25 Vital Signs: Vital Signs Date Time Temp Pulse Resp B/P (MAP) Pulse Ox O2 Delivery O2 Flow Rate FiO2 09/12/21 16:50 79 15 140/93 (109) 96 Room Air 09/12/21 13:17 97.8 97.8 EKG: EKG: Within normal limits [] Radiology/Procedures: Radiology/Procedures: Chest x-ray with right lower scarring consistent with prior surgery [] Impression: Post viral illness Course & Med Decision Making: Course & Med Decision Making Pertinent Labs and Imaging studies reviewed. (See chart for details) 61-year-old female seen and evaluated by myself. Patient with likely viral illness given the fact that she has stuffy and runny nose as well as prior body aches and typical viral syndrome. This is now been ongoing for 5 weeks, no sudden onset of symptoms. Patient states that she has no cough anymore but has lingering shortness of breath. She is saturating well on room air. Patient has no other current symptoms. She has also been previously seen by other provider who also diagnosed her with a viral illness. Today, serum labs are within normal limits. EKG is normal. Chest x-ray within normal limits. No further symptoms. Patient should follow-up with primary care physician in person. Patient was given ER precautions. Patient is hemodynamically stable. Patient recommended to return to ER if worsening or increasing symptoms. This has been ongoing for 5 weeks now. Patient agreed with plan of action. Patient will follow-up with primary care physician, hemodynamically stable time of discharge. All questions answered. Dragon Disclaimer: Dragon Disclaimer: This electronic medical record was generated, in whole or in part, using a voice recognition dictation system. Departure Departure Impression: Primary Impression: Viral upper respiratory illness Disposition: HOME / SELF CARE / HOMELESS Condition: GOOD Patient Instructions: Viral Infections, [id number] Additional Instructions: Follow-up with your primary care physician in 3 to 5 days. Take care to drink plenty of water. Please return to the emergency department if you are having recurrent or persistent or worsening issues. ALYSON MARSHALL MD September 12, 2021 17:27
--- NOTE | 2021-09-12 19:32 | EKG ---
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
--- NOTE | 2021-09-12 19:53 | EKG ---
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
== END 2021-09-12 17:18 | disposition home or self-care (01) ==
LOC: ER 13:12
DX: J06.9 Acute upper respiratory infection, unspecified (principal); B97.89 Other viral agents as the cause of diseases classified elsewhere; Z88.2 Allergy status to sulfonamides; Z20.822 Contact with and (suspected) exposure to COVID-19; Z88.5 Allergy status to narcotic agent; Z91.012 Allergy to eggs
CPT/HCPCS: 36415; 71045; 80053; 81001; 83690; 83735; 83880; 84484; 85025; 87426; 93005; 99285; C9803; U0003